=== PATIENT | female | born 1960 | race Caucasian/White ===

== ENCOUNTER 2016-10-19 12:48 | Inpatient (IN) | payer BC ==
[~2016-10-19] VITALS: Ht 167.6 cm; Wt 69.0 kg
[2016-10-19 13:30] LABS: HEMATOCRIT 42.9 % (36.0-46.0); MCH 31.7 PG (29.0-34.0); MCHC 33.3 G/DL (30.0-36.0); MCV 95.1 FL (83-99); MEAN PLAT.VOLUME 10.2 uM^3 (9.5-12.4); PLATELET COUNT 216 K/uL (156-360); RBC DIS.WIDTH-CV 13.6 % (11.8-14.6); RBC DIS.WIDTH-SD 45.8 % (39-53); RED BLOOD COUNT 4.51 M/uL (3.80-5.20); WHITE BLOOD COUNT 7.5 K/uL (4.1-10.2)
[2016-10-19 13:42] LABS: CHLORIDE 104 mEq/L (99-109); POTASSIUM 4.3 mEq/L (3.7-5.4); SODIUM 140 mEq/L (136-147)
[2016-10-19 13:44] LABS: GLUCOSE 114 mg/dL (70-99)
[2016-10-19 13:45] LABS: ANION GAP 11 MEQ/L (2-14)
[2016-10-19 13:46] LABS: TOTAL BILIRUBIN 0.3 mg/dL (0.0-1.0)
[2016-10-19 13:47] LABS: ALKALINE PHOSPHATASE 51 IU/L (3-129)
[2016-10-19 13:48] LABS: GFR ESTIMATE (CALCULATED) > 59 mL/min/
[2016-10-19 13:49] LABS: UREA NITROGEN (BUN) 15 mg/dL (9-23)
[2016-10-19 13:58] LABS: QUANTITATIVE HCG < 4.0 MIU/ML
[2016-10-19] MEDS ORDERED: LISINOPRIL10 MG PO (14:43)
[2016-10-19] MEDS ORDERED: TRAMADOL HCL50 MG PO (14:44)
[2016-10-19] MEDS ORDERED: PAROXETINE HCL20 MG PO (14:44)
[2016-10-19] MEDS ORDERED: CLONAZEPAM0.5 MG PO (14:45)
[2016-10-19 15:45] LABS: LIPASE 4 U/L (1.0-51.0)
[2016-10-19 17:29] LABS: ADD MIUA? YES; BILIRUBIN SMALL; BLOOD NEGATIVE; COLOR DK YELLOW ((YELLOW)); GLUCOSE (STRIP) NEGATIVE; KETONES TRACE; LEUKOCYTES NEGATIVE; NITRITE NEGATIVE; PROTEIN (STRIP) TRACE; SPECIFIC GRAVITY 1.032 (1.000-1.030)
[2016-10-19 17:42] LABS: BACTERIA 2+; CASTS NONE SEEN /LPF; CRYSTALS NONE SEEN; EPITHELIAL CELLS 1+; MUCUS 1+; UCUL ADDED? NO; WHITE BLOOD CELLS 0-5 /HPF (0-5)
[2016-10-20 13:34] VITALS: BP 140/68
[2016-10-20 13:40] VITALS: BP 140/68
[2016-10-20 17:04] VITALS: BP 106/62
[2016-10-20 20:15] VITALS: BP 133/74
[2016-10-21] VITALS: BP 121/60
[2016-10-21 03:55] VITALS: BP 109/62
[2016-10-21 06:53] LABS: EOSINOPHIL (%) 0 % (0-5); HEMATOCRIT 37.8 % (36.0-46.0); IMMATURE GRANULOCYTE (%) 0.2 % (0.0-0.7); LYMPHOCYTE COUNT 1.5 K/uL (1.0-2.8); MCH 31.3 PG (29.0-34.0); MCHC 33.1 G/DL (30.0-36.0); MCV 94.5 FL (83-99); MEAN PLAT.VOLUME 10.4 uM^3 (9.5-12.4); MONOCYTE (%) 3.7 % (3-12); MONOCYTE COUNT 0.2 K/uL (0-0.8); NEUTROPHIL (%) 73.3 % (45-76); NEUTROPHIL COUNT 4.8 K/uL (1.8-6.4); PLATELET COUNT 205 K/uL (156-360); RBC DIS.WIDTH-CV 12.8 % (11.8-14.6); RBC DIS.WIDTH-SD 44.7 % (39-53); WHITE BLOOD COUNT 6.6 K/uL (4.1-10.2)
[2016-10-21 07:23] LABS: ANION GAP 8 MEQ/L (2-14); C-REACTIVE PROTEIN 1.1 MG/L (0-10); CHLORIDE 107 MEQ/L (99-109); GFR ESTIMATE (CALCULATED) > 59 mL/min/; GLUCOSE 122 mg/dL (70-99); POTASSIUM 4.1 MEQ/L (3.7-5.4); SAMPLE HEMOLYSIS CHECK 0; SAMPLE ICTERIC CHECK 0; SAMPLE LIPEMIA CHECK 0; SODIUM 141 MEQ/L (136-147); UREA NITROGEN (BUN) 10 mg/dL (9-23)
[2016-10-21 08:38] VITALS: BP 140/78
[2016-10-21 12:13] VITALS: BP 137/80
[2016-10-21 20:00] VITALS: BP 120/69
[2016-10-22] VITALS: BP 129/76
[2016-10-22 08:00] VITALS: BP 136/72
[2016-10-22 16:00] VITALS: BP 127/77
[2016-10-22 23:26] VITALS: BP 134/85
[2016-10-23 08:27] VITALS: BP 144/84
[2016-10-23 15:18] VITALS: BP 124/74
[2016-10-24] VITALS: BP 144/85
[2016-10-24 03:50] VITALS: BP 142/70
[2016-10-24 08:00] VITALS: BP 146/82; BP 182/83
[2016-10-24 12:00] VITALS: BP 138/68
[2016-10-24 16:00] VITALS: BP 132/77
[2016-10-24 20:45] VITALS: BP 131/77
[2016-10-25] VITALS: BP 124/78
[2016-10-25 07:00] VITALS: BP 155/82
[2016-10-25 15:00] VITALS: BP 165/86
[2016-10-26 00:17] VITALS: BP 141/65
[2016-10-26 08:00] VITALS: BP 194/88
[2016-10-26 15:41] VITALS: BP 138/67
[2016-10-27] VITALS: BP 157/73
[2016-10-27 06:34] LABS: EOSINOPHIL (%) 0.2 % (0-5); HEMATOCRIT 38.4 % (36.0-46.0); IMMATURE GRANULOCYTE (%) 0.6 % (0.0-0.7); IMMATURE GRANULOCYTE COUNT 0.1 K/uL; LYMPHOCYTE COUNT 5.3 K/uL (1.0-2.8); MCH 31.8 PG (29.0-34.0); MCHC 33.9 G/DL (30.0-36.0); MCV 93.9 FL (83-99); MEAN PLAT.VOLUME 12.1 uM^3 (9.5-12.4); MONOCYTE (%) 8.8 % (3-12); MONOCYTE COUNT 1.1 K/uL (0-0.8); NEUTROPHIL (%) 47.5 % (45-76); NEUTROPHIL COUNT 5.9 K/uL (1.8-6.4); PLATELET COUNT 196 K/uL (156-360); RBC DIS.WIDTH-SD 44.3 % (39-53); RED BLOOD COUNT 4.09 M/uL (3.80-5.20)
[2016-10-27 06:35] LABS: WHITE BLOOD COUNT 12.4 K/uL (4.1-10.2)
[2016-10-27 07:14] LABS: ANION GAP 8 MEQ/L (2-14); CHLORIDE 107 MEQ/L (99-109); GFR ESTIMATE (CALCULATED) > 59 mL/min/; GLUCOSE 131 mg/dL (70-99); POTASSIUM 3.7 MEQ/L (3.7-5.4); SAMPLE HEMOLYSIS CHECK 0; SAMPLE ICTERIC CHECK 0; SAMPLE LIPEMIA CHECK 0; SODIUM 141 MEQ/L (136-147); UREA NITROGEN (BUN) 16 mg/dL (9-23)
[2016-10-27 08:20] VITALS: BP 137/84
[2016-10-27 15:45] VITALS: BP 127/78
[2016-10-28 00:15] VITALS: BP 130/75
[2016-10-28 08:55] VITALS: BP 144/75
[2016-10-28 15:43] VITALS: BP 116/64
[2016-10-28 23:30] VITALS: BP 120/96
[2016-10-29 06:02] LABS: HEMATOCRIT 36.9 % (36.0-46.0); MCH 31.1 PG (29.0-34.0); MCHC 33.3 G/DL (30.0-36.0); MCV 93.4 FL (83-99); MEAN PLAT.VOLUME 10.5 uM^3 (9.5-12.4); PLATELET COUNT 186 K/uL (156-360); RBC DIS.WIDTH-CV 13.2 % (11.8-14.6); RBC DIS.WIDTH-SD 44.4 % (39-53); RED BLOOD COUNT 3.95 M/uL (3.80-5.20)
[2016-10-29 08:11] VITALS: BP 156/74
[2016-10-29] MEDS ORDERED: METRONIDAZOLE500 MG PO (08:19)
[2016-10-29] MEDS ORDERED: CIPROFLOXACIN500 M1 PO (08:19)
[2016-10-29] MEDS ORDERED: MYLICON,MYLANTA80 MG PO (08:19)
[2016-10-29] MEDS ORDERED: DELTASONE20 M1 PO (08:19)
[2016-10-29] MEDS ORDERED: DICYCLOMINE HCL10 MG PO (08:19)
[2016-10-29] MEDS ORDERED: DOCUSATE SODIU100 MG PO (08:19)
[2016-10-29] MEDS ORDERED: CLONAZEPAM0.5 MG PO (08:21)
[2016-10-29] MEDS ORDERED: MYCOSTATIN 100,60 ML PO (08:21)
[2016-10-29 16:23] VITALS: BP 119/73
== END 2016-10-29 17:23 | disposition home or self-care (01) | DRG 386 ==
LOC: EME 12:48 → EDOF 18:58 → 4SOUTH 18:58
PROVIDERS: Internal Medicine
DX: K50.00 Crohn's disease of small intestine without complications (principal); K56.5 Intestinal adhesions [bands] with obstruction (postinfection); B37.0 Candidal stomatitis; A09 Infectious gastroenteritis and colitis, unspecified; R10.9 Unspecified abdominal pain; G89.29 Other chronic pain; F32.9 Major depressive disorder, single episode, unspecified; K43.9 Ventral hernia without obstruction or gangrene; I10 Essential (primary) hypertension; F41.9 Anxiety disorder, unspecified; N39.0 Urinary tract infection, site not specified; Z87.11 Personal history of peptic ulcer disease; Z90.49 Acquired absence of other specified parts of digestive tract; F17.210 Nicotine dependence, cigarettes, uncomplicated; Z80.0 Family history of malignant neoplasm of digestive organs; R63.4 Abnormal weight loss; R63.0 Anorexia; Z68.24 Body mass index [BMI] 24.0-24.9, adult
CPT/HCPCS: 74176; 74177; 80048; 80053; 81003; 83690; 84702; 85025; 85027; 86140; 99281; 99285; J0744; J1170; J1650; J2405; J2543; J2920; J2930; J3010; J7030; J7512; S0030

== ENCOUNTER 2016-11-04 15:11 | Observation (INO) | payer BC ==
[~2016-11-04] VITALS: Ht 167.6 cm; Wt 71.2 kg
[~2016-11-04 15:11] MED LIST: CIPROFLOXACIN500 M1 PO; CLONAZEPAM0.5 MG PO; DELTASONE20 M1 PO; DICYCLOMINE HCL10 MG PO; DOCUSATE SODIU100 MG PO; LISINOPRIL10 MG PO; METRONIDAZOLE500 MG PO; MYCOSTATIN 100,60 ML PO; MYLICON,MYLANTA80 MG PO; PAROXETINE HCL20 MG PO; TRAMADOL HCL50 MG PO
[2016-11-04 15:50] LABS: HEMATOCRIT 43.9 % (36.0-46.0); MCH 31.5 PG (29.0-34.0); MCHC 33.5 G/DL (30.0-36.0); MEAN PLAT.VOLUME 10.1 uM^3 (9.5-12.4); PLATELET COUNT 186 K/uL (156-360); RBC DIS.WIDTH-CV 13.5 % (11.8-14.6); RBC DIS.WIDTH-SD 44.7 % (39-53); RED BLOOD COUNT 4.67 M/uL (3.80-5.20); WHITE BLOOD COUNT 8.8 K/uL (4.1-10.2)
[2016-11-04 15:59] LABS: CHLORIDE 106 mEq/L (99-109); SODIUM 138 mEq/L (136-147)
[2016-11-04 16:01] LABS: GLUCOSE 99 mg/dL (70-99)
[2016-11-04 16:02] LABS: ANION GAP 12 MEQ/L (2-14)
[2016-11-04 16:03] LABS: TOTAL BILIRUBIN 0.3 mg/dL (0.0-1.0)
[2016-11-04 16:04] LABS: ALKALINE PHOSPHATASE 41 IU/L (3-129)
[2016-11-04 16:05] LABS: GFR ESTIMATE (CALCULATED) > 59 mL/min/
[2016-11-04 16:06] LABS: UREA NITROGEN (BUN) 15 mg/dL (9-23)
[2016-11-04 16:08] LABS: LIPASE 10 U/L (1.0-51.0)
[2016-11-04 16:14] LABS: QUANTITATIVE HCG < 4.0 MIU/ML
[2016-11-04 19:15] LABS: ADD MIUA? NO; BILIRUBIN NEGATIVE; BLOOD NEGATIVE; COLOR YELLOW ((YELLOW)); GLUCOSE (STRIP) NEGATIVE; KETONES NEGATIVE; LEUKOCYTES NEGATIVE; NITRITE NEGATIVE; PROTEIN (STRIP) NEGATIVE; SPECIFIC GRAVITY 1.016 (1.000-1.030); UCUL ADDED? NO; UROBILINOGEN 0.2 MG/DL (0.2-1.0)
[2016-11-04] MEDS ORDERED: CIPRO500 MG PO (21:59)
[2016-11-04] MEDS ORDERED: NYSTATIN100000 UN1 PO (22:02)
[2016-11-04] MEDS ORDERED: METRONIDAZOLE500 MG PO (22:05)
[2016-11-04 23:57] LABS: TROP-I INTERPRETATION NEGATIVE; TROPONIN-I < 0.01 ng/mL (0.0-0.30)
[2016-11-05 06:12] LABS: ALKALINE PHOSPHATASE 30 IU/L (3-129); ANION GAP 7 MEQ/L (2-14); CHLORIDE 109 MEQ/L (99-109); GFR ESTIMATE (CALCULATED) > 59 mL/min/; GLUCOSE 90 mg/dL (70-99); POTASSIUM 4.1 MEQ/L (3.7-5.4); SAMPLE HEMOLYSIS CHECK 0; SAMPLE ICTERIC CHECK 0; SAMPLE LIPEMIA CHECK 0; SODIUM 140 MEQ/L (136-147); TOTAL BILIRUBIN 0.4 MG/DL (0.0-1.0); UREA NITROGEN (BUN) 11 mg/dL (9-23)
[2016-11-05 06:19] LABS: HEMATOCRIT 38.3 % (36.0-46.0); MCH 30.9 PG (29.0-34.0); MCHC 32.1 G/DL (30.0-36.0); MCV 96.2 FL (83-99); MEAN PLAT.VOLUME 10.7 uM^3 (9.5-12.4); PLATELET COUNT 173 K/uL (156-360); RBC DIS.WIDTH-CV 13.9 % (11.8-14.6); RBC DIS.WIDTH-SD 48.8 % (39-53); RED BLOOD COUNT 3.98 M/uL (3.80-5.20); WHITE BLOOD COUNT 7.5 K/uL (4.1-10.2)
[2016-11-05 06:47] LABS: TROP-I INTERPRETATION NEGATIVE; TROPONIN-I < 0.01 ng/mL (0.0-0.30)
[2016-11-05 07:45] VITALS: BP 121/64
[2016-11-05 08:14] VITALS: BP 121/64
[2016-11-05 11:38] VITALS: BP 116/63
[2016-11-05 12:27] LABS: TROP-I INTERPRETATION NEGATIVE; TROPONIN-I < 0.01 ng/mL (0.0-0.30)
[2016-11-05] MEDS ORDERED: RELAFEN500 M1 PO (14:55)
[2016-11-05] MEDS ORDERED: PROTONIX40 MG PO (14:55)
[2016-11-05] MEDS ORDERED: MIRALAX17 GM PO (14:55)
[2016-11-05] MEDS ORDERED: REGLAN5 MG PO (14:55)
[2016-11-05 15:51] VITALS: BP 110/64
[2016-11-05 19:44] VITALS: BP 173/79
[2016-11-06 00:19] VITALS: BP 148/73
[2016-11-06 03:12] VITALS: BP 143/83
[2016-11-06 03:13] VITALS: BP 140/78
[2016-11-06 03:14] VITALS: BP 140/78; BP 156/83
[2016-11-06 05:36] LABS: HEMATOCRIT 36.4 % (36.0-46.0); MCH 31.3 PG (29.0-34.0); MEAN PLAT.VOLUME 10.6 uM^3 (9.5-12.4); PLATELET COUNT 167 K/uL (156-360); RBC DIS.WIDTH-CV 13.4 % (11.8-14.6); RBC DIS.WIDTH-SD 46.6 % (39-53); RED BLOOD COUNT 3.83 M/uL (3.80-5.20); WHITE BLOOD COUNT 5.4 K/uL (4.1-10.2)
[2016-11-06 06:38] LABS: ANION GAP 7 MEQ/L (2-14); CHLORIDE 111 MEQ/L (99-109); GFR ESTIMATE (CALCULATED) > 59 mL/min/; GLUCOSE 100 mg/dL (70-99); POTASSIUM 4.1 MEQ/L (3.7-5.4); SAMPLE HEMOLYSIS CHECK 0; SAMPLE ICTERIC CHECK 0; SAMPLE LIPEMIA CHECK 0; SODIUM 142 MEQ/L (136-147); UREA NITROGEN (BUN) 9 mg/dL (9-23)
[2016-11-06 08:12] VITALS: BP 149/94
[2016-11-06 12:07] VITALS: BP 114/75
[2016-11-06] MEDS ORDERED: ENDOCET 5-3251 EACH PO (13:58)
== END 2016-11-06 15:07 | disposition home health service (06) ==
LOC: EME 15:11 → EDOF 23:02 → 5WEST 23:02
PROVIDERS: Internal Medicine
DX: K43.2 Incisional hernia without obstruction or gangrene (principal); R10.9 Unspecified abdominal pain; R55 Syncope and collapse; I10 Essential (primary) hypertension; G89.29 Other chronic pain; K21.9 Gastro-esophageal reflux disease without esophagitis; F32.9 Major depressive disorder, single episode, unspecified; F41.9 Anxiety disorder, unspecified; Z90.49 Acquired absence of other specified parts of digestive tract; F17.210 Nicotine dependence, cigarettes, uncomplicated
CPT/HCPCS: 71101; 71275; 74177; 80048; 80053; 81003; 83690; 84484; 84702; 85027; 93005; 99281; 99285; C9113; G0378; J1170; J1644; J1885; J2405; J2765; J3010; J7030; S0028

== ENCOUNTER → 2016-12-29 | Outpatient (CLI) | payer BC ==
[~2016-12-29] MED LIST changes: +CIPRO500 MG PO; +ENDOCET 5-3251 EACH PO; +MIRALAX17 GM PO; +NYSTATIN100000 UN1 PO; +PROTONIX40 MG PO; +REGLAN5 MG PO; +RELAFEN500 M1 PO
== END | disposition home or self-care (01) ==
LOC: NUC 07:57
DX: R10.13 Epigastric pain (principal)
CPT/HCPCS: 78227; A9537

== ENCOUNTER 2017-01-16 07:07 | Day surgery (SDC) | payer BC ==
[~2017-01-16] VITALS: Ht 167.6 cm; Wt 71.7 kg
[2017-01-16 07:59] VITALS: BP 139/72
[2017-01-16] MEDS ORDERED: PERCOCET 5/31 TABLET PO (11:21)
[2017-01-16 13:46] VITALS: BP 123/67
[2017-01-16 16:00] VITALS: BP 104/57; BP 120/61
[2017-01-16 19:28] VITALS: BP 121/68
[2017-01-16 23:20] VITALS: BP 130/70
[2017-01-17 04:02] VITALS: BP 125/73
[2017-01-17 07:42] VITALS: BP 165/75
[2017-01-17 12:03] VITALS: BP 138/74
[2017-01-17 16:30] VITALS: BP 162/77
[2017-01-17 20:00] VITALS: BP 137/65
[2017-01-17 23:45] VITALS: BP 138/75
[2017-01-18 04:05] VITALS: BP 155/86
[2017-01-18 07:36] VITALS: BP 174/80
== END 2017-01-18 10:04 | disposition home or self-care (01) ==
LOC: SDC 07:07 → 2SOUTH 10:47 → SDC 12:31 → 2EAST 13:35
PROC: 0WQF0ZZ Repair Abdominal Wall, Open Approach (ICD-10-PCS; principal; 2017-01-16)
DX: K43.2 Incisional hernia without obstruction or gangrene (principal); Z53.31 Laparoscopic surgical procedure converted to open procedure; K66.0 Peritoneal adhesions (postprocedural) (postinfection); I10 Essential (primary) hypertension; F41.1 Generalized anxiety disorder; M19.90 Unspecified osteoarthritis, unspecified site; Z86.19 Personal history of other infectious and parasitic diseases; Z79.891 Long term (current) use of opiate analgesic; Z88.5 Allergy status to narcotic agent; Z88.6 Allergy status to analgesic agent; Z88.8 Allergy status to other drugs, medicaments and biological substances; Z80.0 Family history of malignant neoplasm of digestive organs; Z83.3 Family history of diabetes mellitus; Z82.5 Family history of asthma and other chronic lower respiratory diseases; Z82.49 Family history of ischemic heart disease and other diseases of the circulatory system
CPT/HCPCS: G0378; J0330; J0690; J1170; J1885; J2250; J2405; J2710; J2765; J3010; J7120; S0020

== ENCOUNTER 2018-04-27 13:24 | Day surgery (SDC) | payer BC ==
[~2018-04-27] VITALS: Ht 167.6 cm; Wt 80.7 kg
[~2018-04-27 13:24] MED LIST changes: +PAXIL40 MG PO; +PERCOCET 5/31 TABLET PO; +ULTRAM50 MG PO
[2018-04-30] MEDS ORDERED: ZESTRIL10 MG PO (14:44)
[2018-04-30] MEDS ORDERED: PERCOCET 5/31 TABLET PO (14:45)
[2018-04-30] MEDS ORDERED: KLONOPIN0.5 M1 PO (14:47)
[2018-04-30] MEDS ORDERED: AMBIEN10 MG PO (14:48)
[2018-04-30] MEDS ORDERED: ZOFRAN8 MG PO (14:50)
== END 2018-04-27 15:15 | disposition home or self-care (01) ==
LOC: PAIN 13:24 → SDC 13:45 → PAIN 13:45
DX: M47.816 Spondylosis without myelopathy or radiculopathy, lumbar region (principal); M43.16 Spondylolisthesis, lumbar region; M48.061 Spinal stenosis, lumbar region without neurogenic claudication; M51.36 Other intervertebral disc degeneration, lumbar region; K21.9 Gastro-esophageal reflux disease without esophagitis; I10 Essential (primary) hypertension; F41.9 Anxiety disorder, unspecified; Z79.891 Long term (current) use of opiate analgesic; Z87.891 Personal history of nicotine dependence; Z88.5 Allergy status to narcotic agent; Z88.8 Allergy status to other drugs, medicaments and biological substances; Z91.040 Latex allergy status
CPT/HCPCS: J1030; J2250; S0020

== ENCOUNTER 2018-05-04 11:23 | Day surgery (SDC) | payer BC ==
[~2018-05-04] VITALS: Ht 167.6 cm; Wt 80.3 kg
[~2018-05-04 11:23] MED LIST changes: +AMBIEN10 MG PO; +KLONOPIN0.5 M1 PO; +ZESTRIL10 MG PO; +ZOFRAN8 MG PO
== END 2018-05-04 12:40 | disposition home or self-care (01) ==
LOC: PAIN 11:23 → SDC 11:30 → PAIN 12:40
PROC: 3E0T3BZ Introduction of Anesthetic Agent into Peripheral Nerves and Plexi, Percutaneous Approach (ICD-10-PCS; principal; 2018-05-04)
PROC: BR161ZZ Fluoroscopy of Lumbar Facet Joint(s) using Low Osmolar Contrast (ICD-10-PCS; principal; 2018-05-04)
PROC: 3E0T33Z Introduction of Anti-inflammatory into Peripheral Nerves and Plexi, Percutaneous Approach (ICD-10-PCS; principal; 2018-05-04)
DX: M47.816 Spondylosis without myelopathy or radiculopathy, lumbar region (principal); M48.061 Spinal stenosis, lumbar region without neurogenic claudication; M43.16 Spondylolisthesis, lumbar region; M51.36 Other intervertebral disc degeneration, lumbar region; K21.9 Gastro-esophageal reflux disease without esophagitis; I10 Essential (primary) hypertension; Z87.891 Personal history of nicotine dependence; Z88.5 Allergy status to narcotic agent; Z88.8 Allergy status to other drugs, medicaments and biological substances; Z91.040 Latex allergy status
CPT/HCPCS: J1030; J2250; S0020

== ENCOUNTER 2018-05-31 09:13 | Day surgery (SDC) | payer BC ==
[~2018-05-31] VITALS: Ht 167.6 cm; Wt 80.3 kg
== END 2018-05-31 11:42 | disposition home or self-care (01) ==
LOC: PAIN 09:13 → SDC 09:45 → PAIN 09:45
DX: M47.816 Spondylosis without myelopathy or radiculopathy, lumbar region (principal); M43.16 Spondylolisthesis, lumbar region; M48.061 Spinal stenosis, lumbar region without neurogenic claudication; M54.5 Low back pain; M54.2 Cervicalgia; I10 Essential (primary) hypertension; K21.9 Gastro-esophageal reflux disease without esophagitis; F41.9 Anxiety disorder, unspecified; Z87.891 Personal history of nicotine dependence; Z79.891 Long term (current) use of opiate analgesic
CPT/HCPCS: J1030; J1885; J2250; J3010; S0020